=== PATIENT | female | born 1960 | race Caucasian/White ===

== ENCOUNTER 2018-06-30 08:08 | Day surgery (SDC) | payer OTHER ==
[~2018-06-30] VITALS: Ht 157.5 cm; Wt 67.0 kg
[~2018-06-30 08:08] MED LIST: 0.9% SODIUM CHLORIDE 10 ML SYRINGE IVP PRN; ASPI81 PO; CALC-1202 PO; LORA10TA7 PO; METOPROLOL TARTRATE 50 MG TABLET PO PRN; NAPR-58 PO; OMEP20TA25 PO; SIMV-260 PO; VITAD1000 PO
[2018-06-30 09:27] LABS: ANION GAP 8 mmol/L (8-16); CALCIUM, TOTAL 8.5 mg/dL (8.8-10.5); CARBON DIOXIDE 28 mmol/L (22-29); CHLORIDE 104 mmol/L (98-107); CREATININE 0.49 mg/dL (0.60-1.30); GLOMERULAR FILTR. RATE CALC > 60 mL/min (>60); GLUCOSE,RANDOM 103 mg/dL (70-110); POTASSIUM 3.7 mmol/L (3.5-5.1); SODIUM SERUM 140 mmol/L (136-145); UREA NITROGEN, BLOOD 11 mg/dL (7-18)
[2018-06-30] MEDS ORDERED: METOPROLOL TARTRATE 5 MG/5 ML VIAL ONE (10:01)
[2018-06-30] MEDS ORDERED: NITROGLYCERIN 400 MCG/SUBLINGUAL SPRAY 4.9 GM BOTTLE SL ONE ×2 (10:01→10:33)
[2018-06-30] MEDS ORDERED: SODIUM CHLORIDE 0.9% 100 ML ONE (10:17)
[2018-06-30] MEDS ORDERED: IOVERSOL 350 MG/ML 150 ML VIAL ONE (10:17)
== END 2018-06-30 11:20 | disposition home or self-care (01) ==
LOC: SURGERY 08:08 → EDSTATUS 10:00 → SURGERY 11:20
PROVIDERS: ATTEND Internal Medicine Cardiovascular Disease
DX: I25.118 Atherosclerotic heart disease of native coronary artery with other forms of angina pectoris (principal); E78.5 Hyperlipidemia, unspecified; E55.9 Vitamin D deficiency, unspecified; I73.00 Raynaud's syndrome without gangrene; M47.814 Spondylosis without myelopathy or radiculopathy, thoracic region; K21.9 Gastro-esophageal reflux disease without esophagitis; Z86.2 Personal history of diseases of the blood and blood-forming organs and certain disorders involving the immune mechanism; Z79.891 Long term (current) use of opiate analgesic; Z87.42 Personal history of other diseases of the female genital tract; Z91.011 Allergy to milk products; Z72.89 Other problems related to lifestyle; Z90.49 Acquired absence of other specified parts of digestive tract; Z79.82 Long term (current) use of aspirin; Z79.899 Other long term (current) drug therapy; Z98.890 Other specified postprocedural states; Z84.89 Family history of other specified conditions
CPT/HCPCS: 36415; 75574; 80048; 93005; J7050; Q9967; J3490